=== PATIENT | female | born 1975 | race Caucasian/White ===

== ENCOUNTER 2020-09-07 09:02 | Day surgery (SDC) | payer OTHER ==
[~2020-09-07] VITALS: Ht 165.1 cm; Wt 65.8 kg
[2020-09-07] MEDS ORDERED: MIDAZOLAM 5 MG/5 ML VIAL ONE (12:22)
[2020-09-07] MEDS ORDERED: fentaNYL citrate 0.05 MG/ML VIAL ONE (12:22)
[2020-09-07] MEDS ORDERED: MIDAZOLAM 2 MG/2 ML VIAL IVP ONE (12:35)
== END 2020-09-07 13:10 | disposition home or self-care (01) ==
LOC: MDS 09:02 → MMU 09:10 → MDS 13:10
PROVIDERS: ATTEND Internal Medicine Gastroenterology
DX: K21.9 Gastro-esophageal reflux disease without esophagitis (principal); K29.70 Gastritis, unspecified, without bleeding; D64.9 Anemia, unspecified; Z79.899 Other long term (current) drug therapy
CPT/HCPCS: 36415; 86677; J2250; J3010

== ENCOUNTER 2021-10-24 09:21 | Day surgery (SDC) | payer OTHER ==
[~2021-10-24] VITALS: Ht 165.1 cm; Wt 71.7 kg
[~2021-10-24 09:21] MED LIST: FERR-212 PO
[2021-10-24] MEDS ORDERED: LIDOCAINE/EPI MPF 1%1:200000 30 ML VIAL INJ ONE (12:23)
[2021-10-24] MEDS ORDERED: BUPIVACAINE-MPF 0.25% 30 ML VIAL INJ ONE (12:24)
[2021-10-24] MEDS ORDERED: ceFAZolin 2,000 MG VIAL ONE (12:29)
[2021-10-24] MEDS ORDERED: fentaNYL citrate 0.05 MG/ML VIAL ONE (12:30)
[2021-10-24] MEDS ORDERED: SEVOFLURANE 250 ML BTL INH ONE (12:32)
[2021-10-24] MEDS ORDERED: PROPOFOL 200 MG/20 ML VIAL IV ONE (13:35)
[2021-10-24] MEDS ORDERED: ROCURONIUM 50 MG/5 ML VIAL IV ONE (13:37)
[2021-10-24] MEDS ORDERED: KETOROLAC 30 MG/ML VIAL ONE (13:37)
[2021-10-24] MEDS ORDERED: GLYCOPYRROLATE 0.2 MG/ML VIAL ONE ×2 (13:38)
[2021-10-24] MEDS ORDERED: ONDANSETRON 4 MG/2 ML VIAL ONE (13:38)
[2021-10-24] MEDS ORDERED: NEOSTIGMINE 1:1000 10 MG/10 ML VIAL ONE (13:38)
[2021-10-24] MEDS ORDERED: HYDROcodone/APAP 5/325 MG 1 TAB TAB PO PRN (13:40)
[2021-10-24] MEDS ORDERED: ONDANSETRON 4 MG/2 ML VIAL IV PRN (13:40)
[2021-10-24] MEDS ORDERED: HYDROmorphone 1 MG/ML AMP IVP PRN (13:40)
[2021-10-24] MEDS ORDERED: MORPHINE SULFATE 2 MG/ML SYR IVP PRN (13:40)
[2021-10-24] MEDS ORDERED: MORPHINE SULFATE 4 MG/ML SYR IV PRN (13:40)
[2021-10-24] MEDS ORDERED: ACET-8386 PO (13:55)
[2021-10-24] MEDS ORDERED: LABETALOL 20 MG/4 ML VIAL IVP PRN (14:02)
[2021-10-24] MEDS ORDERED: METOCLOPRAMIDE 10 MG/2 ML INJ VIAL IVP PRN (14:02)
[2021-10-24] MEDS ORDERED: hydrALAZINE 20 MG/ML VIAL IVP PRN (14:03)
[2021-10-24] MEDS ORDERED: LACTATED RINGERS 1,000 ML IV SCH (14:05)
[2021-10-24] MEDS ORDERED: ALBUTEROL SULFATE/IPRATROPIU 3 ML SOL IH ONE ×3 (14:10→14:20)
[2021-10-24] MEDS: HYDROmorphone 1 MG/ML AMP IVP PRN ×4 (14:18→14:48)
[2021-10-24] MEDS ORDERED: HYDROmorphone PFS 2 MG/ML SYR ONE (14:20)
== END 2021-10-24 16:00 | disposition home or self-care (01) ==
LOC: MDS 09:21 → MMU 09:21 → MDS 16:00
PROVIDERS: ATTEND Surgery
DX: K80.10 Calculus of gallbladder with chronic cholecystitis without obstruction (principal); Z20.822 Contact with and (suspected) exposure to COVID-19; Z79.899 Other long term (current) drug therapy
CPT/HCPCS: 47562; 71045; 81025; 82374; 87426; 93005; 94640; J1170; J1885; J2001; J2405; J2704; J2710; J3010; J3490; J7030; J7120; Q0092

== ENCOUNTER 2021-12-25 16:12 | Observation (INO) | payer OTHER ==
[~2021-12-25] VITALS: Ht 165.1 cm; Wt 68.0 kg
[~2021-12-25 16:12] MED LIST changes: +ACET-8386 PO
[2021-12-25 16:13] VITALS: BP 94/53
--- NOTE | 2021-12-25 16:22 | NUR ---
BIBA to bed 08
[2021-12-25] MEDS ORDERED: TRANEXAMIC ACID 1,000 MG in NACL 0.9% 50 ML IV STA (16:25)
[2021-12-25] MEDS ORDERED: NACL 0.9% 1,000 ML IV ONE (16:25)
--- NOTE | 2021-12-25 16:40 | NUR ---
46YO FEMALE PT BIBA HOME C/O INCREASED GENERALIZED WEAKNESS XTODAY. REPORTS VAGINAL BLEEDING X2DAYS AND GOING THROUGH 42 PADS SINCE THIS MORNING. PT UNABLE TO AMBULATE AT THIS TIME DUE TO WEAKNESS. STATES PREVIOUS S/S IN AUGUST THAT REQUIRED BLOOD TRANSFUSION. PT STATES RELIEF FROM DEPO PROVERA SHOT - LAST DOSE TAKEN YESTERDAY. DENIES CHEST PAIN, SOB , N/V/D , FEVER OR CHILLS. PT AAOX4, RESPIRATIONS EVEN AND UNLABORED. 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 HX: ANEMIA NKA
--- NOTE | 2021-12-25 16:49 | NUR ---
XRAY AT BEDSIDE
[2021-12-25 16:51] LABS: BASOPHILS % (AUTO) 0.5 % (0.0-2.0); EOSINOPHILS % (AUTO) 0.6 % (0.0-4.0); LYMPHOCYTES # (AUTO) 1.2 K/uL (2.5-16.5); LYMPHOCYTES % (AUTO) 14.8 % (20.5-51.1); MEAN CORPUSCULAR HEMOGLOBIN 28 pg (27-31); MEAN CORPUSCULAR HGB CONC 33 g/dL (33-37); MEAN CORPUSCULAR VOLUME 85.8 fL (80-94); MONOCYTES # (AUTO) 0.4 K/uL (0.8-1.0); MONOCYTES % (AUTO) 4.5 % (1.7-9.3); NEUTROPHILS # (AUTO) 6.2 K/uL (1.8-7.7); NEUTROPHILS % (AUTO) 79.6 % (42.2-75.2); PLATELET COUNT (AUTO) 116 K/uL (140-450); RED BLOOD CELL COUNT(AUTO) 2.01 MIL/uL (4.20-5.40); RED CELL DISTRIBUTION WIDTH 18.3 % (11.6-13.7); WHITE BLOOD COUNT (AUTO) 7.8 K/uL (4.8-10.8)
[2021-12-25 16:56] LABS: HEMOGLOBIN 5.6 g/dL (12.0-16.0)
[2021-12-25 16:57] LABS: HEMATOCRIT 17.2 % (36-48)
[2021-12-25 17:11] LABS: ALBUMIN 2.3 g/dL (3.4-5.0); ANION GAP 14.6 (8-16); CREATININE 0.7 mg/dL (0.6-1.3); POTASSIUM 4.6 mmol/L (3.5-5.1); TOTAL BILIRUBIN 0.1 mg/dL (0.0-1.0)
[2021-12-25 17:12] LABS: PROTHROMBIN TIME 9.8 secs (10.8-13.4)
[2021-12-25] MEDS ORDERED: TRANEXAMIC ACID 1,000 MG/10 ML VIAL ONE (17:14)
--- NOTE | 2021-12-25 20:00 | NUR ---
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
--- NOTE | 2021-12-25 20:00 | NUR ---
REPORT GIVEN TO PAIGE ALBERT OF CARE AT THIS TIME
--- NOTE | 2021-12-25 20:14 | NUR ---
FIRST UNIT PRBC ADMINISTERING AND VERIFIED WITH SHANAE LIMON, SEE TRANSFUSION SHEET FOR DOCUMENTATION.
[2021-12-25] MEDS ORDERED: TRANEXAMIC ACID 1,000 MG/10 ML VIAL MC ONE (20:15)
[2021-12-25] MEDS ORDERED: THROMBIN KIT 20 MU VIAL TP ONE (20:20)
--- NOTE | 2021-12-25 21:30 | NUR ---
PT DIAPER CHANGED AND MD GABRIELE AT BEDSIDE OBSERVING AMOUNT OF VAGINAL BLEEDING, NEW DIAPER APPLIED AND WIPED CLEANED. TWO LARGE BLOOD CLOTS NOTICED.
[2021-12-25] MEDS ORDERED: CALCIUM GLUC 1 GM/50 mL NS BAG 50 ML IV ONE (21:45)
[2021-12-25] MEDS ORDERED: ESTROGENS CONJUGATED IV ONE (22:05)
[2021-12-25] MEDS ORDERED: NACL 0.9% IV ONE (22:05)
[2021-12-25] MEDS ORDERED: MAGNESIUM OXIDE 400 MG TAB PO PRN (23:00)
[2021-12-25] MEDS ORDERED: MAG SULF 2000 MG/WATER PREMIX 50 ML IV PRN (23:00)
[2021-12-25] MEDS ORDERED: KCL 20 MEQ/WATER INJ PREMIX 200 ML IV PRN (23:00)
[2021-12-25] MEDS ORDERED: ONDANSETRON 4 MG/2 ML VIAL IVP PRN (23:00)
[2021-12-25] MEDS ORDERED: MORPHINE SULFATE 4 MG/ML SYR IVP PRN (23:00)
[2021-12-25] MEDS ORDERED: HYDROcodone/APAP 5/325 MG 1 TAB TAB PO PRN (23:00)
[2021-12-25] MEDS ORDERED: POTASSIUM CHLORIDE 10 MEQ TABER PO PRN (23:00)
[2021-12-25] MEDS ORDERED: ACETAMINOPHEN 325 MG TAB PO PRN (23:00)
--- NOTE | 2021-12-25 23:30 | NUR ---
SECOND UNIT OF BLOOD ADMINISTERING AND VERIFIED WITH CHARGE NURSE JARROD RN. SEE TRANSFUSION SHEET FOR VITAL SIGNS.
[2021-12-26] MEDS ORDERED: ESTROGENS CONJUGATED 25 MG INJ VIAL ONE (00:11)
[2021-12-26] MEDS ORDERED: CALCIUM GLUC 1 GM/50 mL NS BAG 50 ML IV ONE (00:13)
--- NOTE | 2021-12-26 00:23 | NUR ---
Patient will be admitted to care of [facility] . Admited to MED/SURG. Will go to [id number]. Belongings list completed. Report to NAYLA BEAL.
--- NOTE | 2021-12-26 00:28 | NUR ---
Patient transferred to M/S/ TELE department via [facility].
--- NOTE | 2021-12-26 00:32 | NUR ---
RECEIVED REPORT FROM ER NURSE CEASAR FOR CONTINUITY OF CARE. PATIENT IS A&O X4. PATIENT IS ON ROOM AIR. IV IS 20G RAC, PATIENT IS CURRENTLY STARTING HER SECOND UNIT OF BLOOD (FIRST UNIT GIVEN IN ER). BED IS IN LOWEST POSITION, WHEELS LOCKED, CALL LIGHT IN PLACE. WILL CONTINUE TO OBSERVE PATIENT.
--- NOTE | 2021-12-26 03:45 | NUR ---
BLOOD FINISHED TRANSFUSING WITHOUT ANY ADVERSE REACTIONS. PATIENT IS SLEEPING, BREATHING IS NORMAL WITH SYMMETRICAL RISE AND FALL OF CHEST. WILL LOOK AT PATIENT'S MEDICATIONS AND ADMINISTER MEDS APPROPRIATE.
[2021-12-26 04:00] VITALS: BP 101/38
--- NOTE | 2021-12-26 05:10 | NUR ---
ADMINISTERED CALCIUM GLUCONATE IVPB. MEDICATION WAS SCHEDULED TO BE GIVEN IN THE ER, BUT ER WAS UNABLE TO ADMINISTER SINCE BLOOD WAS RUNNING. MEDICATION WAS ADMINISTERED. WILL CONTINUE TO OBSERVE PATIENT.
[2021-12-26 06:20] LABS: BASOPHILS % (AUTO) 0.4 % (0.0-2.0); EOSINOPHILS # (AUTO) 0.1 K/uL (0-0.4); EOSINOPHILS % (AUTO) 1.6 % (0.0-4.0); HEMATOCRIT 22.9 % (36-48); HEMOGLOBIN 7.6 g/dL (12.0-16.0); LYMPHOCYTES # (AUTO) 1.8 K/uL (2.5-16.5); LYMPHOCYTES % (AUTO) 31.4 % (20.5-51.1); MEAN CORPUSCULAR HEMOGLOBIN 28 pg (27-31); MEAN CORPUSCULAR HGB CONC 33 g/dL (33-37); MEAN CORPUSCULAR VOLUME 83.7 fL (80-94); MONOCYTES # (AUTO) 0.5 K/uL (0.8-1.0); MONOCYTES % (AUTO) 8.4 % (1.7-9.3); NEUTROPHILS # (AUTO) 3.4 K/uL (1.8-7.7); NEUTROPHILS % (AUTO) 58.2 % (42.2-75.2); PLATELET COUNT (AUTO) 107 K/uL (140-450); RED BLOOD CELL COUNT(AUTO) 2.74 MIL/uL (4.20-5.40); RED CELL DISTRIBUTION WIDTH 17.9 % (11.6-13.7); WHITE BLOOD COUNT (AUTO) 5.9 K/uL (4.8-10.8)
--- NOTE | 2021-12-26 06:40 | NUR ---
ADMINISTERED NS WITH PREMARIN IVPB. MEDICATION WAS SCHEDULED TO BE GIVEN IN THE ER, BUT ER WAS UNABLE TO ADMINISTER SINCE BLOOD WAS RUNNING. MEDICATION WAS ADMINISTERED. WILL CONTINUE TO OBSERVE PATIENT.
[2021-12-26 06:56] LABS: ALBUMIN 2.1 g/dL (3.4-5.0); ANION GAP 9.4 (8-16); CREATININE 0.6 mg/dL (0.6-1.3); MAGNESIUM 1.6 mg/dL (1.8-2.4); POTASSIUM 4.4 mmol/L (3.5-5.1); TOTAL BILIRUBIN 0.3 mg/dL (0.0-1.0)
--- NOTE | 2021-12-26 07:06 | NUR ---
PATIENT HAS BEEN SCREENED AND CATEGORIZED LOW NUTRITION RISK. PATIENT WILL BE SEEN WITHIN 7 DAYS OF ADMISSION. 01/01/[address]
--- NOTE | 2021-12-26 07:30 | NUR ---
ENDORSED CONTINUITY OF CARE TO DAY SHIFT NURSE JESSE. PATIENT IS STABLE.
--- NOTE | 2021-12-26 07:34 | NUR ---
GOT REPORT FROM THE NIGHT NURSE, PT SLEEPING NO SOB [id number]
[2021-12-26 08:00] VITALS: BP 98/57
[2021-12-26] MEDS ORDERED: DOCUSATE SODIUM 100 MG GELCAP PO SCH (09:00)
[2021-12-26] MEDS ORDERED: THROMBIN KIT 20 MU VIAL TP SCH (10:00)
--- NOTE | 2021-12-26 10:38 | NUR ---
PT CONTINUE TO BLEED, CHANGED THE PAD , PT UP TO BATHROOM AND SAYS FELT DIZZY, CONTINUED TO MONITOR.[id number]
[2021-12-26 14:00] VITALS: BP 98/57
[2021-12-26] MEDS ORDERED: THROMBIN KIT 20 MU VIAL TP ONE (14:15)
[2021-12-26 16:03] VITALS: BP 98/57
--- NOTE | 2021-12-26 19:10 | NUR ---
LATE NOTE, PT DISCHARGED HOME, DISCHARGE INSTRUCTION IS GIVEN, IV AND ID BAND [id number]
== END 2021-12-26 17:35 | disposition home or self-care (01) ==
LOC: MED 16:12 → MMU 22:42
PROVIDERS: ADMIT Internal Medicine; ATTEND Internal Medicine
DX: N93.9 Abnormal uterine and vaginal bleeding, unspecified (principal); Z20.822 Contact with and (suspected) exposure to COVID-19; D50.0 Iron deficiency anemia secondary to blood loss (chronic); N92.0 Excessive and frequent menstruation with regular cycle; E83.51 Hypocalcemia
CPT/HCPCS: 36415; 36430; 76856; 80053; 83735; 84702; 85025; 85610; 85730; 86886; 86900; 86901; 86920; 87081; 87426; 96361; 96365; 96366; 96375; 99291; G0378; J0610; J1410; J3490; P9016; Q0092